=== PATIENT | male | born 1970 | race Caucasian/White ===

== ENCOUNTER 2022-02-11 14:04 | Inpatient (IN) ==
[~2022-02-11 14:04] MED LIST: HEPARIN SOD (PORCINE) 1000 UNIT/ML IV ONE; SODIUM CHLORIDE 0.9% 500 ML IV ONE; TICAGRELOR 90 MG TAB PO ONE; fentaNYL citrate 100 MCG/2 ML VIAL IV PRN
[2022-02-11] MEDS ORDERED: MIDAZOLAM HCL 1 MG/ML 2ML VIAL ONE ×2 (14:08→14:41)
[2022-02-11] MEDS ORDERED: HEPARIN (PORCINE) 1000 UNIT/ML 10 ML (CATH LAB USE ONLY) ONE (14:08)
[2022-02-11] MEDS ORDERED: niCARdipine HCL INJ 2.5 MG/ML 10 ML AMP ONE (14:09)
[2022-02-11] MEDS ORDERED: fentaNYL citrate 100 MCG/2 ML VIAL ONE (14:09)
[2022-02-11] MEDS ORDERED: NITROGLYCERIN/D5W 100MCG/ML 20ML SYR ONE (14:09)
[2022-02-11] MEDS ORDERED: BIVALIRUDIN 250 MG VIAL (CATH LAB ONLY) ONE (14:09)
--- NOTE | 2022-02-11 14:20 | Emergency Department Note ---
Impression & Plan STEMI (ST elevation myocardial infarction), Hyperlipidemia, Current smoker, Elevated troponin ED Provider Note NAME: FELICIA HART AGE: 51 SEX: M ARRIVES VIA: Ambulance INFORMANT: Patient ED PROVIDER(S): Joseph Pino MD CHIEF COMPLAINT: Chest pain, STEMI PLAN: Disposition: Admit MEDICAL DECISION MAKING: The patient is a pleasant 60-year-old gentleman with a past medical history of hyperlipidemia who admits to not following with his primary care and close to 10 years or more not currently on medications who presents to the emergency depart ment via EMS as a heart alert. This provider, discussed the case with EMS via medical command and reviewed EKG which demonstrated inferior ST elevation [place] with elevations in 2, 3 aVF with reciprocal depression in aVL. Full dose ASA given in the field. Case was discussed with Dr. Ruelas, interventional cardiology, on-call. Agrees we will proceed with heparin and ticagrelor. The patient contacted 911 for acute onset substernal chest pain that began approximately an hour prior to arrival after he was outside in the yard doing some work and went into the garage and began to feel the pressure and nausea with associated lightheadedness and diaphoresis. Patient ports he had a similar episode last ni ght that was not as severe and quickly resolved. 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 He denies any known family history of heart disease. He denies any recent fevers, chills, cough, congestion, GI or symptoms. He reports his pain is a 5/10 at this time but declines any pain medication or nitroglycerin. On arrival the patient is no acute distress, afebrile stable vital signs. Exam is otherwise unremarkable. EKG continues to demonstrate ST elevations in leads II, 3, aVF with reciprocal depression in aVL. WBC, H/H, platelets wnl. Chemistry without acidosis. Electrolytes unremarkable. LFTs without significant abnormality. Initial high-sensitivity troponin 72. Heparin and Ticagrelor administered. Findings and plan for cardiac intervention reviwed with patient and his at the bedside who agreed. Patient was taken emergently to the Cath-lab for intervention. Case was discussed with Dr. Mina, [facility] hospitalist, who will evaluate the patient for admission following cath-lab intervention. Triage Nursing notes reviewed and agree them. Prior medical records reviewed Vital Signs: reviewed and remarkable for no significant abnormalities Differential diagnosis: Cardiac ischemia, aortic dissection, pulmonary embolism, pneumothorax, pneumonia, pericarditis, myocarditis, esophageal rupture, GERD, cholecystitis, pancreatitis, musculoskeletal, as well as other pathologies. ER treatment provided: See below. Diagnostics interpreted by me: ECG: Sinus rhythm, 68 bpm, no ectopy, ST elevations in leads II, 3, aVF with reciprocal depression in aVL. Cardiac Monitoring: An order for continuous cardiac monitoring was placed and demonstrated sinus rhythm, 68 bpm, no ectopy. Laboratory studies: See below Imaging studies: See below Consultation(s): Dr. Ruelas, interventional cardiology. Dr. Mina, [facility] hospitalist. HPI: The patient is a pleasant 60-year-old gentleman with a past medical history of hyperlipidemia who admits to not following with his primary care and close to 10 years or more not currently on medications who presents to the emergency department via EMS as a heart alert. This provider, discussed the case with EMS via medical command and reviewed EKG which demonstrated inferior ST elevation AZ with elevations in 2, 3 aVF with reciprocal depression in aVL. Full dose ASA given in the field. Case was discussed with Dr. Ruelas, interventional cardiology, on-call. Agrees we will proceed with heparin and ticagrelor. The patient contacted 911 for acute onset substernal chest pain that began approximately an hour prior to arrival after he was outside in the yard doing some work and went into the garage and began to feel the pressure and nausea with associated lightheadedness and diaphoresis. Patient ports he had a similar episode last night that was not as severe and quickly resolved. 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 He denies any known family history of heart disease. He denies any recent fevers, chills, cough, congestion, GI or symptoms. He reports his pain is a 5/10 at this time but declines any pain medication or nitroglycerin. ROS: See above HPI for pertinent positives & negatives. A total of 10 systems reviewed and were otherwise negative. VITALS:See Below PHYSICAL EXAMINATION: GENERAL: Awake, alert, uncomfortable-appearing, in no distress HENT: Normocephalic, atraumatic. Oropharynx unremarkable. EYES: Normal conjunctiva. Sclera non-icteric. NECK: Supple. No nuchal rigidity. FROM. No JVD. RESPIRATORY: Clear to auscultation. CARDIAC: Regular rate, normal rhythm. Extremities warm and well perfused. Pulses equal. ABDOMEN: Soft, non-distended. No tenderness to palpation. No rebound or guarding. No masses. RECTAL: Deferred. MUSCULOSKELETAL: Chest examination reveals no tenderness. The back is symmetrical on inspection without obvious abnormality. There is no CVA tenderness to palpation. No joint edema. LOWER EXTREMITIES: Calves are equal size bilaterally and non-tender. No edema. No discoloration. NEURO: Normal sensorium. No sensory or motor deficits noted. SKIN: No rash or jaundice noted. ED COURSE: Critical Care: I have personally spent greater than 35 minutes of critical care time in the direct management of this patient. This includes bedside care, interpretation of diagnostic studies, and testing, discussion with consultants, patient, and family members, and other required patient management activities. This 35 minutes is in excess of all separately billable procedures Joseph Pino MD Past Med/Surg History Medical History CAD (coronary artery disease), [place] coronary artery Current smoker Hyperlipidemia Surgical History No pertinent past surgical history Family History Other Family history non-contributory Denies family history of Heart disease Social History (Updated 02/11/22 @ 16:49 by Ginette Mina MD) Smoking Status: Current every day smoker Tobacco Type: Cigarettes Second Hand Exposure: Yes; Hx Alcohol Use: Yes Alcohol type: beer Alcohol Intake Frequency: 4 or More x per/Week Alcohol Intake Frequency Comment: 2-6 beers Hx Substance Use: No Preferred Language: Bolivian Communication Ability: Effective Packaging Mechanic Required: No Beliefs That Will Affect Care: None Current Living Situation: Spouse and Family current occupational status: employed current occupation: Works in the [employer] Feels Safe at Home: Yes Assistive Devices: None Allergies Allergies Allergy/AdvReac Type Severity Reaction Status Date / Time No Known Allergies Allergy Unverified 02/11/22 14:28 Home Meds Home Medications Medication Instructions Recorded Confirmed No Known Home Medications 02/11/22 02/11/22 Results & Data (ED) Vital Signs Vital Signs - 24 hr 02/11/22 13:56 02/11/22 14:03 02/11/22 14:27 Temperature 36.7 C Temperature Source Oral Pulse Rate 66 66 66 Pulse Rhythm Regular Respiratory Rate 18 18 18 Respiratory Effort / Characteristics Non-Labored Respiratory Depth Normal Respiratory Pattern Regular Blood Pressure 136/84 136/84 Blood Pressure Mean 101 Pulse Oximetry 99 99 99 Oxygen Delivery Method Room Air Room Air Room Air Sepsis Recent Fever Within 48 Hours No Sepsis New/Unexplained Change in Mental Status No Sepsis Action Taken by Nursing No Action Required Laboratory Data Attestation: I reviewed the patient's lab results. Result diagrams: 02/11/22 14:15 02/11/22 14:15 Lab Results 02/11/22 02/11/22 02/11/22 Range/Units 14:08 14:15 14:15 WBC 9.24 (4.8-10.8) K/uL RBC 5.14 (4.7-6.1) M/uL Hgb 16.5 (14.0-18.0) g/dL Hct 48.2 (42-52) % MCV 93.8 (80-100) fL MCH 32.1 (25-34) pg MCHC 34.2 (32-36) g/dL RDW Std Deviation 44.8 (36.4-46.3) fL RDW Coeff of Adina 13.0 (11.5-14.5) % Plt Count 228 (130-400) K/uL MPV 11.1 H (7.4-10.4) fL Immature Gran % (Auto) 0.1 % Neut % (Auto) 50.8 % Lymph % (Auto) 40.5 % [place] % (Auto) 6.3 % Eos % (Auto) 1.9 % Baso % (Auto) 0.4 % Neut # (Auto) 4.69 (1.4-6.5) K/uL Lymph # (Auto) 3.74 H (1.2-3.4) K/uL [place] # (Auto) 0.58 (0.11-0.59) K/uL Eos # (Auto) 0.18 (0-0.5) K/uL Baso # (Auto) 0.04 (0-0.2) K/uL Immature Gran # (Auto) 0.01 (0.00-0.02) K/uL PT 10.2 (9.0-12.0) Seconds INR 1.0 (0.9-1.1) APTT 23.1 (21.0-31.0) Seconds PTT Ratio 0.8 Sodium (136-145) mmol/L Potassium (3.5-5.1) mmol/L Chloride (98-107) mmol/L Carbon Dioxide (21-32) mmol/L Anion Gap (3-11) BUN (6-23) mg/dl Creatinine (0.6-1.4) mg/dl Est Cr Clr Drug Dosing ml/min Est GFR ( Amer) ml/min Est GFR (Non-Af Amer) ml/min BUN/Creatinine Ratio (10-20) Glucose (70-99(Fasting)) mg/dl Calcium (8.5-10.1) mg/dl Magnesium (1.7-2.4) mg/dl Total Bilirubin (0.2-1.0) mg/dl AST (13-39) U/L ALT (7-52) U/L Alkaline Phosphatase (34-104) U/L Total Creatine Kinase (30-223) U/L Troponin I High Sens (0-20) pg/ml B-Natriuretic Peptide (0-100) pg/ml Total Protein (6.0-8.3) gm/dl Albumin (3.4-5.0) gm/dl Globulin (2.5-4.0) gm/dl Albumin/Globulin Ratio (0.9-2) Lipase (11-82) U/L TSH (0.300-4.500) uIu/ml SARS-CoV-2, RNA, NAAT NEGATIVE (NEGATIVE) 02/11/22 02/11/22 02/11/22 Range/Units 14:15 14:15 14:15 WBC (4.8-10.8) K/uL RBC (4.7-6.1) M/uL Hgb (14.0-18.0) g/dL Hct (42-52) % MCV (80-100) fL MCH (25-34) pg MCHC (32-36) g/dL RDW Std Deviation (36.4-46.3) fL RDW Coeff of Adina (11.5-14.5) % Plt Count (130-400) K/uL MPV (7.4-10.4) fL Immature Gran % (Auto) % Neut % (Auto) % Lymph % (Auto) % [place] % (Auto) % Eos % (Auto) % Baso % (Auto) % Neut # (Auto) (1.4-6.5) K/uL Lymph # (Auto) (1.2-3.4) K/uL [place] # (Auto) (0.11-0.59) K/uL Eos # (Auto) (0-0.5) K/uL Baso # (Auto) (0-0.2) K/uL Immature Gran # (Auto) (0.00-0.02) K/uL PT (9.0-12.0) Seconds INR (0.9-1.1) APTT (21.0-31.0) Seconds PTT Ratio Sodium 139 (136-145) mmol/L Potassium 3.8 (3.5-5.1) mmol/L Chloride 104 (98-107) mmol/L Carbon Dioxide 26 (21-32) mmol/L Anion Gap 9 (3-11) BUN 12 (6-23) mg/dl Creatinine 0.90 (0.6-1.4) mg/dl Est Cr Clr Drug Dosing 107.6 ml/min Est GFR ( Amer) 115.0 ml/min Est GFR (Non-Af Amer) 99.2 ml/min BUN/Creatinine Ratio 13.3 (10-20) Glucose 103 H (70-99(Fasting)) mg/dl Calcium 9.5 (8.5-10.1) mg/dl Magnesium 2.1 (1.7-2.4) mg/dl Total Bilirubin 0.8 (0.2-1.0) mg/dl AST 23 (13-39) U/L ALT 34 (7-52) U/L Alkaline Phosphatase 78 (34-104) U/L Total Creatine Kinase 119 (30-223) U/L Troponin I High Sens 72.0 H* (0-20) pg/ml B-Natriuretic Peptide 18 (0-100) pg/ml Total Protein 7.7 (6.0-8.3) gm/dl Albumin 4.7 (3.4-5.0) gm/dl Globulin 3.0 (2.5-4.0) gm/dl Albumin/Globulin Ratio 1.6 (0.9-2) Lipase 25 (11-82) U/L TSH 1.522 (0.300-4.500) uIu/ml SARS-CoV-2, RNA, NAAT (NEGATIVE) Administered Medications Atorvastatin Calcium (Atorvastatin 40 Mg Tab) 40 mg PO QAM MARGIE Stop: 03/13/22 15:29 Last Admin: 02/11/22 17:15 Dose: 40 mg Documented by: [id number] Metoprolol Tartrate (Metoprolol Tartrate 25 Mg Tab) 25 mg PO BID MARGIE Stop: 03/13/22 20:59 Last Admin: 02/11/22 20:10 Dose: 25 mg Documented by: [id number] Discontinued Medications Aspirin (Aspirin 81 Mg Ectab) 81 mg PO ONE ONE Stop: 02/11/22 16:46 Last Admin: 02/11/22 17:15 Dose: 81 mg Documented by: [id number] Atropine Sulfate (Atropine Sulfate 0.1 Mg/Ml 10ml Syr) Confirm Administered Dose 1 mg IV .STK-MED ONE Stop: 02/11/22 14:40 Last Admin: 02/11/22 15:44 Dose: 1 mg Documented by: [id number] Bivalirudin (Bivalirudin 250 Mg Vial (Laundry Attendant Only)) Confirm Administered Dose 250 mg .ROUTE .STK-MED ONE Stop: 02/11/22 14:10 Last Admin: 02/11/22 15:43 Dose: 250 mg Documented by: [id number] Dopamine HCl/Dextrose (Dopamine 400mg / 250ml D5w (Laundry Attendant Use Only)) Confirm Administered Dose 400 mg .ROUTE .STK-MED ONE Stop: 02/11/22 14:55 Last Admin: 02/11/22 15:45 Dose: Not Given Documented by: [id number] Fentanyl Citrate (Fentanyl Citrate 100 Mcg/2 Ml Vial) Confirm Administered Dose 100 mcg .ROUTE .STK-MED ONE Stop: 02/11/22 14:10 Last Admin: 02/11/22 15:43 Dose: 50 mcg Documented by: [id number] Heparin Sodium (Porcine) (Heparin Sod (Porcine) 1000 Unit/Ml) 5,000 units IV NOW ONE Stop: 02/11/22 13:58 Last Admin: 02/11/22 14:15 Dose: 5,000 units Documented by: [id number] Cosigned by: [id number] Heparin Sodium (Porcine) (Heparin (Porcine) 1000 Unit/Ml 10 Ml (Laundry Attendant Use Only)) Confirm Administered Dose 10,000 units .ROUTE .STK-MED ONE Stop: 02/11/22 14:09 Last Admin: 02/11/22 15:43 Dose: Not Given Documented by: [id number] Heparin Sodium/Sodium Chloride (Heparin In Nss Infusion 1000 Unit/500 Ml (2 U/Ml) Bag) Confirm Administered Dose 3,000 units IV .STK-MED ONE Stop: 02/11/22 14:10 Last Admin: 02/11/22 15:44 Dose: 3,000 units Documented by: [id number] Sodium Chloride (Nss) 500 mls @ 999 mls/hr IV .Q31M ONE Stop: 02/11/22 14:29 Last Infusion: 02/11/22 17:37 Dose: 0 mls/hr Documented by: [id number] Admin: 02/11/22 14:16 Dose: 999 mls/hr Documented by: [id number] Midazolam HCl (Midazolam Hcl 1 Mg/Ml 2ml Vial) Confirm Administered Dose 2 mg .ROUTE .STK-MED ONE Stop: 02/11/22 14:09 Last Increment: 02/11/22 15:43 Dose: 2 mg Documented by: [id number] Midazolam HCl (Midazolam Hcl 1 Mg/Ml 2ml Vial) Confirm Administered Dose 2 mg .ROUTE .STK-MED ONE Stop: 02/11/22 14:42 Last Admin: 02/11/22 15:44 Dose: Not Given Documented by: [id number] Nicardipine HCl (Nicardipine Hcl Inj 2.5 Mg/Ml 10 Ml Amp) Confirm Administered D ose 25 mg .ROUTE .STK-MED ONE Stop: 02/11/22 14:10 Last Admin: 02/11/22 15:44 Dose: 25 mg Documented by: [id number] Nitroglycerin/Dextrose (Nitroglycerin/D5w 100mcg/Ml 20ml Syr) Confirm Adm inistered Dose 2,000 mcg .ROUTE .STK-MED ONE Stop: 02/11/22 14:10 Last Admin: 02/11/22 15:44 Dose: 2,000 mcg Documented by: [id number] Ticagrelor (Ticagrelor 90 Mg Tab) 180 mg PO ONE ONE Stop: 02/11/22 13:58 Last Admin: 02/11/22 14:16 Dose: 180 mg Documented by: [id number] Imaging Data Radiologist's Impression: Chest X-Ray 02/11/22 13:56 XR chest 1V portable HISTORY: 51 years-old Male Chest pain acute atypical chest pain COMPARISON: None TECHNIQUE: AP view of the chest FINDINGS: Cardiac silhouette is enlarged. Mild nonspecific interstitial coarsening. No pneumothorax, pleural effusion, airspace consolidation or overt pulmonary edema. The bones of the chest appear grossly intact. IMPRESSION: Cardiomegaly without acute process. ACT 112: Negative or not required by law. The above report was generated using voice recognition software. It may contain grammatical, syntax or spelling errors. Electronically signed by: Xavier Cespedes M.D. 02/11/2022 2:22 PM Discharge Plan Visit Data Chief Complaint: Heart Alert ED Provider: Joseph Pino Discharge Problem: STEMI (ST elevation myocardial infarction), Hyperlipidemia, Current smoker, Elevated troponin Patient Disposition: Admitted As Inpatient Discharge Instructions Interventions: ED Discharge Assessment Last Done: 02/11/22 14:27 Discharge Problem: STEMI (ST elevation myocardial infarction) Qualifiers: Involved coronary artery: unspecified coronary artery Qualified Code(s): I21.3 - ST elevation (STEMI) myocardial infarction of unspecified site Hyperlipidemia Qualifiers: Hyperlipidemia type: unspecified Qualified Code(s): E78.5 - Hyperlipidemia, unspecified
--- NOTE | 2022-02-11 14:25 | XRay Report ---
XR chest 1V portable HISTORY: 51 years-old Male Chest pain acute atypical chest pain COMPARISON: None TECHNIQUE: AP view of the chest FINDINGS: Cardiac silhouette is enlarged. Mild nonspecific interstitial coarsening. No pneumothorax, pleural ef fusion, airspace consolidation or overt pulmonary edema. The bones of the chest appear grossly intact . IMPRESSION: Cardiomegaly without acute process. ACT 112: Negative or not required by law. The above report was generated using voice recognition software. It may contain grammatical, syntax o r spelling errors. Electronically signed by: Xavier Cespedes M.D. 02/11/2022 2:22 PM
[2022-02-11 14:36] LABS: Basophils # (auto) 0.04 K/uL (0-0.2); Basophils % (auto) 0.4 %; Eosinophils # (auto) 0.18 K/uL (0-0.5); Eosinophils % (auto) 1.9 %; Hematocrit (blood only) 48.2 % (42-52); Hemoglobin 16.5 g/dL (14.0-18.0); Immature Granulocytes # (auto) 0.01 K/uL (0.00-0.02); Immature Granulocytes % (auto) 0.1 %; Lymphocytes # (auto) 3.74 K/uL (1.2-3.4); Lymphocytes % (auto) 40.5 %; Mean Corpuscular Hemoglobin 32.1 pg (25-34); Mean Corpuscular Hgb Conc 34.2 g/dL (32-36); Mean Corpuscular Volume 93.8 fL (80-100); Mean Platelet Volume 11.1 fL (7.4-10.4); Monocytes # (auto) 0.58 K/uL (0.11-0.59); Monocytes % (auto) 6.3 %; Neutrophils # (auto) 4.69 K/uL (1.4-6.5); Neutrophils % (auto) 50.8 %; Platelet Count 228 K/uL (130-400); RDW Standard Deviation 44.8 fL (36.4-46.3); Red Blood Count 5.14 M/uL (4.7-6.1); White Blood Count 9.24 K/uL (4.8-10.8)
[2022-02-11] MEDS ORDERED: ATROPINE SULFATE 0.1 MG/ML 10ML SYR IV ONE (14:39)
[2022-02-11 14:43] LABS: Partial Thromboplastin Ratio 0.8; Partial Thromboplastin Time 23.1 Seconds (21.0-31.0); Prothrombin Time 10.2 Seconds (9.0-12.0)
[2022-02-11] MEDS ORDERED: DOPamine 400MG / 250ML D5W (Cath Lab Use ONLY) ONE (14:54)
[2022-02-11 14:59] LABS: Albumin Globulin Ratio 1.6 (0.9-2); Albumin Level 4.7 gm/dl (3.4-5.0); BUN Creatinine Ratio 13.3 (10-20); Bilirubin,Total 0.8 mg/dl (0.2-1.0); Calcium 9.5 mg/dl (8.5-10.1); Creatinine Clr Calc Pharmacy 107.6 ml/min; Est GFR (Non-African American) 99.2 ml/min; Magnesium 2.1 mg/dl (1.7-2.4); Potassium 3.8 mmol/L (3.5-5.1); Total Protein 7.7 gm/dl (6.0-8.3)
--- NOTE | 2022-02-11 14:59 | History & Physical Report ---
Date of Service February 11, 2022 Assessment & Plan (1) STEMI (ST elevation myocardial infarction): Plan: Presented with inferior STEMI. Risk factors include age, gender, smoking, untreated hyperlipidemia. 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 Taken urgently for cardiac cath and found to have severe 99% mid RCA lesion with MICHEAL II flow. He had successful intervention performed with placement of 2 overlapping drug- eluting stents in mid right coronary artery, 3 mm x 23 mm Xience drug-eluting stents. His left coronary system appears to have mild to moderate mid LAD disease of 40 to 50% severity, left circumflex system otherwise appears normal. Is now chest pain free and feels great post-cath. Right femoral cath site -admit to ICU -consult Rehab Technician appreciated -consult Cardiology -tele monitoring for arrhythmia -start DAPT with ASA-first dose now, and Brilinta -start atorvastatin high intensity and check lipid panel in AM--> he reports a h/o severe myalgias in the past with a statin drug but cannot recall which one -start metoprolol 25mg po bid -will also need ACEi when BP can tolerate -follow CBC, BMP, Mag, Phos in AM -check HgbA1C in AM -trend serial troponin till peaks -check ECHO -femoral cath site precautions -counseled extensively on importance of smoking cessation -will need cardiac rehab (2) CAD (coronary artery disease), [place] coronary artery: Plan: as above (3) Hyperlipidemia: Plan: start statin, checking lipids (4) Current smoker: Plan: counseled on cessation Plan: DVT proph-SCDs Dispo-admit to ICU. WIll need to get re-established with PCP after discharge as has not had one in over 10 years FULL CODE History of Present Illness Chief Complaint: Chest pain Primary Care Provider: Marley Sánchez PA-C This pt is a 51 yo male with a h/o smoking and hyperlipidemia who has not seen a PCP in over 10 years and takes no medications who presents to the ER after having chest pain that came on while doing some yard work today about an hour b efore his arrival to the hospital. He had some chest pain last evening that was similar but did not last as long and then went away. Today after the chest pain started, he went into his garage and then had some associated N/V and diaphoresis. He tried taking ibuprofen and some milk with no relief. Pain radiated to his left shoulder and he had a sensation that something wasn't quite right. He then called 911 and arrived in ER via EMS. He was found to have ST elevations in inferior leads with reciprocal ST depressions in lateral leads c/w inferior STEMI. He was hemodynamically stable in the ER. A heart alert was called and he was given Brilinta and heparin gtt, but no aspirin. 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 His left coronary system appears to have mild to moderate mid LAD disease of 40 to 50% severity, left circumflex system otherwise appears normal. He will be admitted to the ICU for post-interventional care and tele monitoring for arrhythmia. Allergies Allergy/AdvReac Type Severity Reaction Status Date / Time No Known Allergies Allergy Unverified 02/11/22 14:28 Home Medications Medication Instructions Recorded Confirmed Type No Known Home Medications 02/11/22 02/11/22 History Past Med/Surg History Medical History CAD (coronary artery disease), [place] coronary artery Current smoker Hyperlipidemia Surgical History No pertinent past surgical history Family History Other Family history non-contributory Denies family history of Heart disease Social History (Updated 02/11/22 @ 16:49 by Ginette Mina MD) Smoking Status: Current every day smoker Tobacco Type: Cigarettes Second Hand Exposure: Yes; Do You Dip or Chew Tobacco: Yes; Tobacco Cessation Education Requested by Patient: Yes Hx Alcohol Use: Yes Alcohol type: beer Alcohol Intake Frequency: 4 or More x per/Week Alcohol Intake Frequency Comment: 2-6 beers Hx Substance Use: No Preferred Language: Angolan Communication Ability: Effective 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 Beliefs That Will Affect Care: None Current Living Situation: Spouse and Family current occupational status: employed current occupation: Works in the [employer] Other Information That Helps Us Care for You: No Feels Safe at Home: Yes Safety Concerns: Feels Safe At This Time Assistive Devices: None Review of Systems Review of Systems: All systems reviewed & are unremarkable except as noted in HPI & below Physical Exam Constitutional: WD/WN, vitals as above Eyes: PERRL, conjunctivae normal, anicteric sclerae ENMT: external ear and nose normal, oropharynx normal Neck: trachea midline, no thyromegaly Respiratory: normal respiratory effort, lungs clear to auscultation Cardiovascular: RRR, no murmur, no edema Chest (Breasts): Chest: normal inspection of chest Gastrointestinal (Abdomen): normal bowel sounds, soft, nontender, no hepatosplenomegaly Musculoskeletal: Extremities: extremities normal to inspection; no cyanosis and no clubbing Skin: no rashes, warm and dry Neurologic: moves all extremities and awake; no focal motor deficits Psychiatric: A+Ox3, euthymic affect Lymphatic: no lymphedema Results & Data Results & Data ([facility]) Vital Signs (Past 12 Hours) Vital Signs Temp Pulse Resp BP Pulse Ox 02/11/22 14:27 66 18 136/84 99 02/11/22 14:03 36.7 C 66 18 136/84 99 02/11/22 13:56 66 18 99 Laboratory Results 02/11/22 02/11/22 02/11/22 Range/Units 14:15 14:15 14:15 WBC (4.8-10.8) K/uL RBC (4.7-6.1) M/uL Hgb (14.0-18.0) g/dL Hct (42-52) % MCV (80-100) fL MCH (25-34) pg MCHC (32-36) g/dL RDW Std Deviation (36.4-46.3) fL RDW Coeff of Adina (11.5-14.5) % Plt Count (130-400) K/uL MPV (7.4-10.4) fL Immature Gran % (Auto) % Neut % (Auto) % Lymph % (Auto) % [place] % (Auto) % Eos % (Auto) % Baso % (Auto) % Neut # (Auto) (1.4-6.5) K/uL Lymph # (Auto) (1.2-3.4) K/uL [place] # (Auto) (0.11-0.59) K/uL Eos # (Auto) (0-0.5) K/uL Baso # (Auto) (0-0.2) K/uL Immature Gran # (Auto) (0.00-0.02) K/uL PT (9.0-12.0) Seconds INR (0.9-1.1) APTT (21.0-31.0) Seconds PTT Ratio Sodium 139 (136-145) mmol/L Potassium 3.8 (3.5-5.1) mmol/L Chloride 104 (98-107) mmol/L Carbon Dioxide 26 (21-32) mmol/L Anion Gap 9 (3-11) BUN 12 (6-23) mg/dl Creatinine 0.90 (0.6-1.4) mg/dl Est Cr Clr Drug Dosing 107.6 ml/min Est GFR ( Amer) 115.0 ml/min Est GFR (Non-Af Amer) 99.2 ml/min BUN/Creatinine Ratio 13.3 (10-20) Glucose 103 H (70-99(Fasting)) mg/dl Calcium 9.5 (8.5-10.1) mg/dl Magnesium 2.1 (1.7-2.4) mg/dl Total Bilirubin 0.8 (0.2-1.0) mg/dl AST 23 (13-39) U/L ALT 34 (7-52) U/L Alkaline Phosphatase 78 (34-104) U/L Total Creatine Kinase 119 (30-223) U/L Troponin I High Sens Pending B-Natriuretic Peptide 18 (0-100) pg/ml Total Protein 7.7 (6.0-8.3) gm/dl Albumin 4.7 (3.4-5.0) gm/dl Globulin 3.0 (2.5-4.0) gm/dl Albumin/Globulin Ratio 1.6 (0.9-2) Lipase 25 (11-82) U/L TSH 1.522 (0.300-4.500) uIu/ml SARS-CoV-2, RNA, NAAT (NEGATIVE) 02/11/22 02/11/22 02/11/22 Range/Units 14:15 14:15 14:08 WBC 9.24 (4.8-10.8) K/uL RBC 5.14 (4.7-6.1) M/uL Hgb 16.5 (14.0-18.0) g/dL Hct 48.2 (42-52) % MCV 93.8 (80-100) fL MCH 32.1 (25-34) pg MCHC 34.2 (32-36) g/dL RDW Std Deviation 44.8 (36.4-46.3) fL RDW Coeff of Adina 13.0 (11.5-14.5) % Plt Count 228 (130-400) K/uL MPV 11.1 H (7.4-10.4) fL Immature Gran % (Auto) 0.1 % Neut % (Auto) 50.8 % Lymph % (Auto) 40.5 % [place] % (Auto) 6.3 % Eos % (Auto) 1.9 % Baso % (Auto) 0.4 % Neut # (Auto) 4.69 (1.4-6.5) K/uL Lymph # (Auto) 3.74 H (1.2-3.4) K/uL [place] # (Auto) 0.58 (0.11-0.59) K/uL Eos # (Auto) 0.18 (0-0.5) K/uL Baso # (Auto) 0.04 (0-0.2) K/uL Immature Gran # (Auto) 0.01 (0.00-0.02) K/uL PT 10.2 (9.0-12.0) Seconds INR 1.0 (0.9-1.1) APTT 23.1 (21.0-31.0) Seconds PTT Ratio 0.8 Sodium (136-145) mmol/L Potassium (3.5-5.1) mmol/L Chloride (98-107) mmol/L Carbon Dioxide (21-32) mmol/L Anion Gap (3-11) BUN (6-23) mg/dl Creatinine (0.6-1.4) mg/dl Est Cr Clr Drug Dosing ml/min Est GFR ( Amer) ml/min Est GFR (Non-Af Amer) ml/min BUN/Creatinine Ratio (10-20) Glucose (70-99(Fasting)) mg/dl Calcium (8.5-10.1) mg/dl Magnesium (1.7-2.4) mg/dl Total Bilirubin (0.2-1.0) mg/dl AST (13-39) U/L ALT (7-52) U/L Alkaline Phosphatase (34-104) U/L Total Creatine Kinase (30-223) U/L Troponin I High Sens B-Natriuretic Peptide (0-100) pg/ml Total Protein (6.0-8.3) gm/dl Albumin (3.4-5.0) gm/dl Globulin (2.5-4.0) gm/dl Albumin/Globulin Ratio (0.9-2) Lipase (11-82) U/L TSH (0.300-4.500) uIu/ml SARS-CoV-2, RNA, NAAT NEGATIVE (NEGATIVE) Diagnostic Findings Chest X-Ray 02/11/22 13:56 XR chest 1V portable HISTORY: 51 years-old Male Chest pain acute atypical chest pain COMPARISON: None TECHNIQUE: AP view of the chest FINDINGS: Cardiac silhouette is enlarged. Mild nonspecific interstitial coarsening. No pneumothorax, pleural effusion, airspace consolidation or overt pulmonary edema. The bones of the chest appear grossly intact. IMPRESSION: Cardiomegaly without acute process. ACT 112: Negative or not required by law. The above report was generated using voice recognition software. It may contain grammatical, syntax or spelling errors. Electronically signed by: Xavier Cespedes M.D. 02/11/2022 2:22 PM ECG Additional Comments: as per HPI Code Status & VTE Plan Code Status FULL CODE VTE Prophylaxis Plan VTE Prophylaxis will be ordered: Yes PG Care Time/CCT Total # of Minutes Spent Total Time Spent with Patient: Total time spent is greater than 50% in coordination of care (as documented) at patient's floor/unit and/or counseling patient: Coding Level of Care Code 12076 Initial Inpt Care Lvl 3 Diagnoses Hyperlipidemia E78.5 Current smoker F17.200 STEMI (ST elevation myocardial infarction) I21.3 CAD (coronary artery disease), [place] coronary artery I25.10
--- NOTE | 2022-02-11 15:12 | Pre Anesthesia Assessment ---
Date of Service February 11, 2022 Pre Sedation Assessment Vital Signs Temp Pulse Resp BP Pulse Ox 02/11/22 14:27 66 18 136/84 99 02/11/22 14:03 36.7 C 66 18 136/84 99 02/11/22 13:56 66 18 99 Cardiovascular RRR, no murmur, no edema Pre-Sedation Airway Assessment Smoking Status: Current every day smoker II III Notes The planned sedation has been discussed with the patient. Informed Consent was obtained. I have identified the patient, determined the appropriateness of sed ation and have assessed the patient immediately prior to the procedure. All medicine(s) and interventions are by my order.
--- NOTE | 2022-02-11 15:12 | Post Anesthesia Assessment ---
Date of Service February 11, 2022 Post Sedation Assessment Vital Signs Temp Pulse Resp BP Pulse Ox 02/11/22 14:27 66 18 136/84 99 02/11/22 14:03 36.7 C 66 18 136/84 99 02/11/22 13:56 66 18 99 Recovery Score Activity: Moves 4 extremities Respiration: Deep Breath/Cough Circulation: +/-20% PreAnes Value Consciousness: Fully Awake Oxygen Saturation: > 92% On Room Air Discharge Sedation Level of Care: Higher Level of Care Post Sedation Plan On clinical assessment, the patient appears to have tolerated the sedation without complications. Patient is recovering as anticipated. Patient will continue to be monitored by nursing and may be discharged when sedation discharge criteria are met per below protocol. Upon Completions of procedure up to 15 minutes continue every 5 minute vital signs and the P.A.R. score; then discharge to a Phase I or Fast Track to Phase II per the following guidelines: * Discharge Patient to appropriate Phase II area if PAR is 8 or greater or return to pre- procedure baseline. The post - procedure orders will be as directed. * If PAR score is less than 8 or not return to pre-procedure baseline then patient will follow Phase I monitoring till PAR is reached for Phase II. The Phase I may be done in procedure room or may call to secure a Phase I area. * If naloxone or flumazenil are used for reversal, hold in Phase I for continued monitoring from when last reversal dose was given for a minimum of 60 minutes or longer pending the nurse and/or physician discretion of patient condition before discharge to Phase II. Please call the Sedation Physician to re-evaluate and complete post-note for discharge to Phase II area. Do NOT discharge from procedure sedation or Phase 1 until post- sedation evaluation note is complete by procedure /sedation MD Sedation Discharge Instructions to be given to the patient at discharge to home.
--- NOTE | 2022-02-11 15:15 | Cardiac Catheterization ---
ACC Data: [employer] Cardiac Status Clinical evaluation leading to the procedure CAD Presenation: STEMI Diagnostic Physicians Name: Agus Ruelas MD Closure Device Recommendations: Medical Therapy and/or Counseling and PCI without planned CABG Cardiac Cath Procedure Full Procedure Date February 11, 2022 Pre-Procedure Diagnosis Pre-Procedure Diagnosis: STEMI AUC Score AUC Score: 9 Post-Procedure Diagnosis Post-Procedure Diagnosis: Successful PCI Procedure(s) Performed Procedure(s) Performed: Coronary Angiography and Drug Eluting Stent Apiculture Teacher Agus Ruelas MD Estimated Blood Loss Estimated Blood Loss: 10 Summary of Findings 51-year-old gentleman presented to the hospital with acute inferior ST elevation myocardial infarction. Cardiac catheterization revealed severe 99% mid RCA lesion with MICHEAL II flow. He had successful intervention performed with placement of 2 overlapping drug- eluting stents in mid right coronary artery, 3 mm x 23 mm Xience drug-eluting stents. Successful jainism of MICHEAL-3 flow in the distal part of the vasculature. His left coronary system appears to have mild to moderate mid LAD disease of 40 to 50% severity, left circumflex system otherwise appears normal. Hemodynamics Rest Ao:: 129/71 Final Ao: 84/60 LV: not done Recommendations Recommendations: Medical Therapy and/or Counseling and PCI without planned CABG Radiation Exposure (mGy) 1323 Contrast (mls) 110 I attest to the content of the Intraoperative Record and any orders documented therein. Any exceptions are noted below. PG Care Time/CCT Total # of Minutes Spent Total Time Spent with Patient: Total time spent is greater than 50% in coordination of care (as documented) at patient's floor/unit and/or counseling patient:
[2022-02-11] MEDS ORDERED: ICU PROTOCOL FOR HYPERGLYCEMIA PRN (16:07)
--- NOTE | 2022-02-11 16:24 | Critical Care Consultation ---
Date of Consultation February 11, 2022 Assessment & Plan (1) CAD (coronary artery disease), [place] coronary artery: (2) STEMI (ST elevation myocardial infarction): (3) Current smoker: (4) Hyperlipidemia: Supervising Physician Co-Signing Physician Notes Chest x-ray 02/11/2022 personally reviewed: Portable film, good inspiratory effort, bilateral costophrenic and cardiophrenic angles are clean, mildly increased cardiac silhouette. No clear lung. Appreciated -- Acute STEMI S/p PCI: ROBERT x2 in the RCA Follow-up 2D echo Continue with aspirin, Brilinta, beta-robin, statin patient will need JORGE added as well -- Current smoker Importance of quitting explained to the patient in depth PFT as an outpatient --Prophylaxis VTE: Start Lovenox tomorrow GI: None Lines: Peripheral Diet: Cardiac Plan: Monitor hemodynamics. Start beta-robin if the patient is able to sustain good good blood pressure HbA1c and lipid profile tomorrow Trend EKG and troponin Please note the above document was generated using voice recognition software. It may contain grammatical, syntax or spelling errors.Any formal questions or concerns about the content, text or information contained within the body of this dictation should be directly addressed to the provider for clarification. History of Present Illness Attending Physician: Ginette Mina MD History of Present Illness 51-year-old male presented to the hospital because of chest pain and shortness of breath Pain was radiating to the back. Patient was found to have inferior wall CA He was taken to the [facility] and had 2 stent placed in the RCA Post [facility] he was sent to the ICU for monitoring At the time of examination patient heart rate was in the low 90s. Blood pressure was systolic in the 110s MAP of 75 He stated that he is feeling better. Denied any chest pain at that time. No headache, no blurry vision. No dizziness currently. No nausea or vomiting. No fever or chills. No dysuria, diarrhea. Social history: 22-[id number]-[id number] smoking history, actively smoking quarter pack a day. 1-2 drinks on a daily basis There is no family history of heart problems that he can recall Allergies Allergy/AdvReac Type Severity Reaction Status Date / Time No Known Allergies Allergy Unverified 02/11/22 14:28 Home Medications Medication Instructions Recorded Confirmed Type No Known Home Medications 02/11/22 02/11/22 History Patient History Medical History (Updated 02/11/22 @ 15:11 by Ginette Mina MD) CAD (coronary artery disease), [place] coronary artery Current smoker Hyperlipidemia Social History Smoking Status: Current every day smoker Tobacco Type: Cigarettes Second Hand Exposure: Yes; Do You Dip or Chew Tobacco: Yes; Tobacco Cessation Education Requested by Patient: Yes Hx Alcohol Use: Yes Alcohol type: beer Hx Substance Use: No Preferred Language: Lithuanian Communication Ability: Effective Stoner Hand Required: No Beliefs That Will Affect Care: None Current Living Situation: Spouse and Family Other Information That Helps Us Care for You: No Feels Safe at Home: Yes Safety Concerns: Feels Safe At This Time Assistive Devices: None Review of Systems Review of Systems: All systems reviewed & are unremarkable except as noted in HPI & below Physical Exam Physical Exam: Constitutional: No acute distress HEENT: EOMI, PERRLA Respiratory system: Good air entry bilaterally, no wheeze, no rhonchi, no crackles CVS: S1-S2 positive, no murmurs or gallops Abdomen: Soft, nontender, nondistended, positive bowel sounds x4 Extremities: +2 pulses bilaterally radialis/ dorsalis pedis, no cyanosis, no edema Neuro: Awake alert oriented x3 Psych: Normal mood and affect G/U: No Flor Skin: no rashes, warm and dry Lymphatic: no cervical or axillary lymphadenopathy Results & Data Results & Data ([facility]) Vital Signs (Past 12 Hours) Vital Signs Temp Pulse Pulse Resp BP BP Pulse Ox 02/11/22 15:58 37.0 C 96 H 16 119/82 99 02/11/22 15:55 37.0 C 92 H 16 119/82 99 02/11/22 14:27 66 18 136/84 99 02/11/22 14:03 36.7 C 66 18 136/84 99 02/11/22 13:56 66 18 99 Laboratory Results 02/11/22 14:15 02/11/22 14:15 Coding Level of Care Code 51816 Inpt Consult Level 4 Diagnoses CAD (coronary artery disease), [place] coronary artery I25.10 STEMI (ST elevation myocardial infarction) I21.3 Current smoker F17.200 Hyperlipidemia E78.5
[2022-02-11] MEDS ORDERED: ASPIRIN 81 MG ECTAB PO ONE (16:45)
[2022-02-11] MEDS: ATORVASTATIN 40 MG TAB PO SCH (17:15)
[2022-02-11] MEDS: METOPROLOL TARTRATE 25 MG TAB PO SCH (20:10)
[2022-02-12 05:33] LABS: Basophils # (auto) 0.02 K/uL (0-0.2); Basophils % (auto) 0.2 %; Eosinophils # (auto) 0.11 K/uL (0-0.5); Eosinophils % (auto) 1.2 %; Hematocrit (blood only) 45.1 % (42-52); Hemoglobin 15.7 g/dL (14.0-18.0); Immature Granulocytes # (auto) 0.02 K/uL (0.00-0.02); Immature Granulocytes % (auto) 0.2 %; Lymphocytes # (auto) 2.94 K/uL (1.2-3.4); Lymphocytes % (auto) 31.9 %; Mean Corpuscular Hemoglobin 33.1 pg (25-34); Mean Corpuscular Hgb Conc 34.8 g/dL (32-36); Mean Corpuscular Volume 94.9 fL (80-100); Mean Platelet Volume 10.8 fL (7.4-10.4); Monocytes # (auto) 0.64 K/uL (0.11-0.59); Monocytes % (auto) 6.9 %; Neutrophils % (auto) 59.6 %; Platelet Count 232 K/uL (130-400); RDW Coefficient of Variation 13.2 % (11.5-14.5); RDW Standard Deviation 46.1 fL (36.4-46.3); Red Blood Count 4.75 M/uL (4.7-6.1); White Blood Count 9.23 K/uL (4.8-10.8)
[2022-02-12 05:49] LABS: Albumin Level 4.1 gm/dl (3.4-5.0); BUN Creatinine Ratio 22.7 (10-20); Bilirubin Direct 0.1 mg/dl (0-0.2); Calcium 9.4 mg/dl (8.5-10.1); Chol HDL Ratio 6.8 (0-5); Creatinine Clr Calc Pharmacy 129.1 ml/min; Magnesium 2.3 mg/dl (1.7-2.4); Phosphorus 3.4 mg/dl (2.5-4.9); Potassium 4.1 mmol/L (3.5-5.1); Total Protein 6.9 gm/dl (6.0-8.3)
--- NOTE | 2022-02-12 08:25 | Critical Care Progress Note ---
Date of Service February 12, 2022 Assessment & Plan (1) CAD (coronary artery disease), [place] coronary artery: (2) STEMI (ST elevation myocardial infarction): (3) Current smoker: (4) Hyperlipidemia: (5) NSVT (nonsustained ventricular tachycardia): Plan: Chest x-ray 02/11/2022 personally reviewed: Portable film, good inspiratory effort, bilateral costophrenic and cardiophrenic angles are clean, mildly increased cardiac silhouette. No clear lung. Appreciated -- Acute STEMI S/p PCI: ROBERT x2 in the RCA 2D echo 02/12/2022: EF 55-50%, moderate basal inferior hypokinesis, borderline aortic root dilatation Continue with aspirin, Brilinta, beta-robin, statin patient will need JORGE added as well -- Nonsustained V. tach Patient is already on beta-robin Cardiology on board --Dyslipidemia Started on statin Patient will need to work on diet and exercise -- Current smoker Importance of quitting explained to the patient in depth PFT as an outpatient --Prophylaxis VTE: None, patient is moving around in the hospital GI: None Lines: Peripheral Diet: Cardiac Plan: In/out: Negative 820, urine output 1800 mL EKG from today shows T wave inversions in lead III and aVF. No ST segment changes Continue with beta-robin Monitor for NSVT Patient hemodynamically stable to be out of the ICU Case discussed with Dr. Limon Please note the above document was generated using voice recognition software. It may contain grammatical, syntax or spelling errors.Any formal questions or concerns about the content, text or information contained within the body of this dictation should be directly addressed to the provider for clarification. Admission and Anticipated Discharge Date Admission Date: February 11, 2022 Subjective Patient seen and examined at bedside. No acute distress Overnight as well as early in the morning patient did have 6 beats of nonsustained V. tach Patient was asymptomatic at that time Denies any chest pain, no dizziness, no nausea, no vomiting Was able to tolerate breakfast today without any issues Asking to go home Review of Systems Review of Systems: All systems reviewed & are unremarkable except as noted in Subjective Physical Exam Physical Exam: Constitutional: No acute distress HEENT: EOMI, PERRLA Respiratory system: Good air entry bilaterally, no wheeze, no rhonchi, no crackles CVS: S1-S2 positive, no murmurs or gallops Abdomen: Soft, nontender, nondistended, positive bowel sounds x4 Extremities: +2 pulses bilaterally radialis/ dorsalis pedis, no cyanosis, no edema Neuro: Awake alert oriented x3 Psych: Normal mood and affect G/U: No Flor Skin: no rashes, warm and dry Lymphatic: no cervical or axillary lymphadenopathy Results & Data Results & Data ([facility]) Vital Signs (Past 12 Hours) Vital Signs Temp Pulse Pulse Resp BP BP Pulse Ox 02/12/22 08:00 64 20 125/76 94 02/12/22 07:57 36.8 C 02/12/22 07:30 61 21 108/77 94 02/12/22 07:15 60 18 104/76 94 02/12/22 07:00 36.8 C 60 18 95 02/12/22 06:45 63 16 105/80 93 02/12/22 06:00 70 19 94 02/12/22 05:45 54 L 17 97/73 L 95 02/12/22 05:30 56 L 17 94 02/12/22 05:00 59 L 15 97/66 L 94 02/12/22 04:30 60 15 103/68 93 02/12/22 04:00 36.8 C 57 L 14 94 02/12/22 03:30 58 L 15 94 02/12/22 03:01 67 15 101/71 95 02/12/22 03:00 66 18 94 02/12/22 02:30 79 15 94 02/12/22 02:00 69 15 92/59 L 95 02/12/22 01:30 71 15 101/61 94 02/12/22 01:15 58 L 15 91/55 L 94 02/12/22 01:00 66 19 93 02/12/22 00:45 64 18 102/67 93 02/12/22 00:30 63 18 93 02/12/22 00:15 60 16 99/70 L 94 02/12/22 00:00 36.9 C 61 15 91/56 L 93 02/11/22 23:49 36.9 C 66 20 91/57 L 93 02/11/22 23:30 68 17 93 02/11/22 23:00 66 17 93 02/11/22 22:45 99 H 17 112/75 95 02/11/22 22:30 70 17 93 0604/22 22:00 72 15 92 02/11/22 21:30 69 16 93 02/11/22 21:00 69 18 94 02/11/22 20:30 78 20 113/73 97 Laboratory Results 02/12/22 05:03 02/12/22 05:03 Coding Level of Care Code 23852 Subseq Hosp Care Lvl 2 Diagnoses CAD (coronary artery disease), [place] coronary artery I25.10 STEMI (ST elevation myocardial infarction) I21.3 Involved coronary artery: unspecified coronary artery Current smoker F17.200 Hyperlipidemia E78.5 Hyperlipidemia type: unspecified NSVT (nonsustained ventricular tachycardia) I47.2 (1) Hyperlipidemia Hyperlipidemia type: unspecified Qualified Code(s): E78.5 - Hyperlipidemia, unspecified (2) STEMI (ST elevation myocardial infarction) Involved coronary artery: unspecified coronary artery Qualified Code(s): I21.3 - ST elevation (STEMI) myocardial infarction of unspecified site
[2022-02-12] MEDS: ATORVASTATIN 40 MG TAB PO SCH (08:35)
[2022-02-12] MEDS: METOPROLOL TARTRATE 25 MG TAB PO SCH ×2 (08:35→20:35)
[2022-02-12] MEDS: TICAGRELOR 90 MG TAB PO SCH ×2 (08:35→20:34)
[2022-02-12] MEDS: ASPIRIN 81 MG ECTAB PO SCH (08:35)
--- NOTE | 2022-02-12 08:47 | Electrocardiogram Report ---
Test Reason : Blood Pressure : / mmHG Vent. Rate : 068 BPM Atrial Rate : 068 BPM P-R Int : 212 ms QRS Dur : 090 ms QT Int : 382 ms P-R-T Axes : 060 023 098 degrees QTc Int : 406 ms Sinus rhythm with 1st degree A-V block Possible Left atrial enlargement Acute Inferior-posterior infarct T wave abnormality, consider lateral ischemia ACUTE OH / STEMI Consider right ventricular involvement in acute inferior infarct Abnormal ECG No previous ECGs available Confirmed by Juan Melton ([id number]) on 02/12/2022 8:47:32 AM Referred By: Confirmed By:Juan Melton
--- NOTE | 2022-02-12 08:50 | Electrocardiogram Report ---
Test Reason : Blood Pressure : / mmHG Vent. Rate : 081 BPM Atrial Rate : 081 BPM P-R Int : 186 ms QRS Dur : 096 ms QT Int : 382 ms P-R-T Axes : 055 -31 007 degrees QTc Int : 443 ms Sinus rhythm with Premature supraventricular complexes Left axis deviation Inferior infarct (cited on or before 11-FEB-2022) Abnormal ECG When compared with ECG of 11-FEB-2022 14:07, (unconfirmed) Premature supraventricular complexes are now Present Serial changes of evolving Inferior infarct Present Confirmed by Juan Melton ([id number]) on 02/12/2022 8:50:25 AM Referred By: REFERRED SELF Confirmed By:Juan Melton
--- NOTE | 2022-02-12 09:00 | Electrocardiogram Report ---
Test Reason : Blood Pressure : / mmHG Vent. Rate : 062 BPM Atrial Rate : 062 BPM P-R Int : 178 ms QRS Dur : 084 ms QT Int : 404 ms P-R-T Axes : 057 -33 000 degrees QTc Int : 410 ms Normal sinus rhythm Left axis deviation Inferior infarct (cited on or before 11-FEB-2022) Abnormal ECG When compared with ECG of 11-FEB-2022 17:05, (unconfirmed) Premature supraventricular complexes are no longer Present Confirmed by Juan Melton ([id number]) on 02/12/2022 9:00:01 AM Referred By: REFERRED SELF Confirmed By:Juan Melton
--- NOTE | 2022-02-12 09:28 | Cardiology Progress Note ---
Date of Service February 12, 2022 Assessment & Plan (1) STEMI (ST elevation myocardial infarction): (2) CAD (coronary artery disease), [place] coronary artery: (3) Hyperlipidemia: (4) Current smoker: Plan: 1. Acute inferior myocardial infarction: He is doing well postintervention and his echocardiogram shows wall motion abnormalities but an overall preserved left ventricular function. 2. Coronary artery disease: He does have left system disease but it is nonobstr uctive but without strict risk factor modification this will almost certainly progress given his young age. His modifiable risk factors include smoking and cholesterol management. It sounds as though he has a reasonable diet although he should follow a Mediterranean diet and he is not overweight and is quite active. 3. Hyperlipidemia: He has a history of hyperlipidemia but has not been on stat in therapy recently. He is now on atorvastatin 40 mg daily which I would continue for now but if he tolerates this dose I would increase it to 80 in follow-up as an outpatient. If this does not control his cholesterol he should be considered for one of the injectable agents. 4. Smoking: It will be essential that he stop smoking which he understands. Admission and Anticipated Discharge Date Admission Date: February 11, 2022 Subjective This is a 51-year-old male with a history of hyperlipidemia currently not on treatment, as well as being a current smoker, who presented with acute onset of substernal chest discomfort on February 11, 2022. His symptoms were substernal chest pressure and nausea associated with lightheadedness and diaphoresis. He had a similar episode the night before but it resolved quickly. He came into the emergency room where he was noted to have an acute inferior myocardial infarction and he was taken [facility] to [facility] where he was found to have a subtotal mid RCA stenosis which was successfully dilated and stented. He had mild to moderate left system disease with no intervention indicated. His troponin peaked at over 50,000, and his cholesterol was markedly elevated on presentation. An echocardiogram done this morning after intervention shows normal overall left ventricular systolic function but with moderate basal inferior hypokinesis. Today he feels quite well. He is having no further chest discomfort, he is not short of breath and has no complaints. He is sitting at his bedside. Results & Data ([facility]) Vital Signs (Past 12 Hours) Vital Signs Temp Pulse Pulse Resp BP BP Pulse Ox 02/12/22 08:58 36.9 C 02/12/22 08:25 02/12/22 08:00 64 20 125/76 94 02/12/22 07:57 36.8 C 02/12/22 07:30 61 21 108/77 94 02/12/22 07:15 60 18 104/76 94 02/12/22 07:00 36.8 C 60 18 95 02/12/22 06:45 63 16 105/80 93 02/12/22 06:00 70 19 94 02/12/22 05:45 54 L 17 97/73 L 95 02/12/22 05:30 56 L 17 94 02/12/22 05:00 59 L 15 97/66 L 94 02/12/22 04:30 60 15 103/68 93 02/12/22 04:00 36.8 C 57 L 14 94 02/12/22 03:30 58 L 15 94 02/12/22 03:01 67 15 101/71 95 02/12/22 03:00 66 18 94 02/12/22 02:30 79 15 94 02/12/22 02:00 69 15 92/59 L 95 02/12/22 01:30 71 15 101/61 94 02/12/22 01:15 58 L 15 91/55 L 94 02/12/22 01:00 66 19 93 02/12/22 00:45 64 18 102/67 93 02/12/22 00:30 63 18 93 02/12/22 00:15 60 16 99/70 L 94 02/12/22 00:00 36.9 C 61 15 91/56 L 93 02/11/22 23:49 36.9 C 66 20 91/57 L 93 02/11/22 23:30 68 17 93 02/11/22 23:00 66 17 93 02/11/22 22:45 99 H 17 112/75 95 02/11/22 22:30 70 17 93 02/11/22 22:00 72 15 92 02/11/22 21:30 69 16 93 Pulse Ox 02/12/22 08:58 02/12/22 08:25 99 02/12/22 08:00 02/12/22 07:57 02/12/22 07:30 02/12/22 07:15 02/12/22 07:00 02/12/22 06:45 02/12/22 06:00 02/12/22 05:45 02/12/22 05:30 02/12/22 05:00 02/12/22 04:30 02/12/22 04:00 02/12/22 03:30 02/12/22 03:01 02/12/22 03:00 02/12/22 02:30 02/12/22 02:00 02/12/22 01:30 02/12/22 01:15 02/12/22 01:00 02/12/22 00:45 02/12/22 00:30 02/12/22 00:15 02/12/22 00:00 02/11/22 23:49 02/11/22 23:30 02/11/22 23:00 02/11/22 22:45 02/11/22 22:30 02/11/22 22:00 02/11/22 21:30 Laboratory Results Cardiac Enzymes 02/11/22 02/11/22 02/11/22 Range/Units 14:15 14:15 20:24 AST 23 (13-39) U/L Troponin I High Sens 72.0 H* 57198.5 H* D (0-20) pg/ml B-Natriuretic Peptide 18 (0-100) pg/ml 02/12/22 02/12/22 Range/Units 02:03 05:03 AST 117 H (13-39) U/L Troponin I High Sens 41109.2 H* (0-20) pg/ml B-Natriuretic Peptide (0-100) pg/ml Coagulation 02/11/22 02/11/22 Range/Units 14:15 14:15 PT 10.2 (9.0-12.0) Seconds APTT 23.1 (21.0-31.0) Seconds B-Natriuretic Peptide 18 (0-100) pg/ml Lipids 02/12/22 Range/Units 05:03 Triglycerides 187 H (0-150) mg/dl Cholesterol 259 H (0-200) mg/dl HDL Cholesterol 38 mg/dl Cholesterol/HDL Ratio 6.8 H (0-5) CBC 02/11/22 02/12/22 Range/Units 14:15 05:03 WBC 9.24 9.23 (4.8-10.8) K/uL RBC 5.14 4.75 (4.7-6.1) M/uL Hgb 16.5 15.7 (14.0-18.0) g/dL Hct 48.2 45.1 (42-52) % Plt Count 228 232 (130-400) K/uL Neut # (Auto) 4.69 5.50 (1.4-6.5) K/uL Lymph # (Auto) 3.74 H 2.94 (1.2-3.4) K/uL [place] # (Auto) 0.58 0.64 H (0.11-0.59) K/uL Eos # (Auto) 0.18 0.11 (0-0.5) K/uL Baso # (Auto) 0.04 0.02 (0-0.2) K/uL Comprehensive Metabolic Panel 02/11/22 02/12/22 Range/Units 14:15 05:03 Sodium 139 138 (136-145) mmol/L Potassium 3.8 4.1 (3.5-5.1) mmol/L Chloride 104 108 H (98-107) mmol/L Carbon Dioxide 26 23 (21-32) mmol/L BUN 12 17 (6-23) mg/dl Creatinine 0.90 0.75 (0.6-1.4) mg/dl Glucose 103 H 97 (70-99(Fasting)) mg/dl Calcium 9.5 9.4 (8.5-10.1) mg/dl Direct Bilirubin 0.1 (0-0.2) mg/dl AST 23 117 H (13-39) U/L ALT 34 48 (7-52) U/L Alkaline Phosphatase 78 70 (34-104) U/L Total Protein 7.7 6.9 (6.0-8.3) gm/dl Albumin 4.7 4.1 (3.4-5.0) gm/dl Intake and Output 02/11/22 02/12/22 02/12/22 22:59 06:59 14:59 Intake Total 740 / 740 0 / 740 240 / 240 Output Total 1300 / 1300 0 / 1300 500 / 500 Balance -560 / -560 0 / -560 -260 / -260 Intake: IV 500 / 500 Sodium Chloride 0.9% 500 ml @ 500 / 500 999 mls/hr IV .Q31M ONE Rx#: [id number] Oral 240 / 240 0 / 240 240 / 240 Output: Urine 1300 / 1300 0 / 1300 500 / 500 Other: Weight 87.6 kg 86.6 kg Weight Measurement Method [facility] Time/CCT Total # of Minutes Spent Total Time Spent with Patient: Total time spent is greater than 50% in coordination of care (as documented) at patient's floor/unit and/or counseling patient: Coding Level of Care Code 91425 Subseq Hosp Care Lvl 3 Diagnoses STEMI (ST elevation myocardial infarction) I21.11 Involved coronary artery: right coronary artery CAD (coronary artery disease), [place] coronary artery I25.10 Associated angina: without angina [place] vs. transplanted heart: [place] heart Hyperlipidemia E78.5 Hyperlipidemia type: unspecified Current smoker F17.200 (1) Hyperlipidemia Hyperlipidemia type: unspecified Qualified Code(s): E78.5 - Hyperlipidemia, unspecified (2) CAD (coronary artery disease), [place] coronary artery Associated angina: without angina [place] vs. transplanted heart: [place] heart Qualified Code(s): I25.10 - Atherosclerotic heart disease of [place] coronary artery without angina pectoris (3) STEMI (ST elevation myocardial infarction) Involved coronary artery: right coronary artery Qualified Code(s): I21.11 - ST elevation (STEMI) myocardial infarction involving right coronary artery
--- NOTE | 2022-02-12 09:53 | XCELERA ---
[id number] \\[id number]
--- NOTE | 2022-02-12 10:13 | Hospitalist Progress Note ---
Date of Service February 12, 2022 Assessment & Plan (1) STEMI (ST elevation myocardial infarction): Plan: Presented with inferior STEMI. Risk factors include age, gender, smoking, untreated hyperlipidemia. 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 Taken urgently for cardiac cath and found to have severe 99% mid RCA lesion with MICHEAL II flow. He had successful intervention performed with placement of 2 overlapping drug- eluting stents in mid right coronary artery, 3 mm x 23 mm Xience drug-eluting stents. His left coronary system appears to have mild to moderate mid LAD disease of 40 to 50% severity, left circumflex system otherwise appears normal. remains chest pain free. Right femoral cath site DAPT with ASA-first dose now, and Brilinta -start atorvastatin high intensity metoprolol 25mg po bid -will also need ACEi when BP can tolerate -preliminary ECHO shows preserved EF with moderate basal inferior hypokinesis. -femoral cath site precautions -counseled extensively on importance of smoking cessation -will need cardiac rehab (2) CAD (coronary artery disease), [place] coronary artery: Plan: as above (3) Hyperlipidemia: Plan: started statin, TC 259, LDL 184,HDL38. trig 187 (4) Current smoker: Plan: counseled on cessation Plan: DVT proph-lovenox transition out of icu , additional monitoring with nsVT Needs PCP FULL CODE Admission and Anticipated Discharge Date Admission Date: February 11, 2022 Subjective pt states he feels great, has no further chest pain, did have some non sustained V tach over the night, none since tolerating medications well Review of Systems Review of Systems: Mild distress and fatigue no headache, no visual changes no speech or swallowing issues no chest pain, pressure or palpitations no shortness of breath, cough or wheezes no abdominal pain, nausea or vomiting, diarrhea or constipation no dysuria, hematuria or frequency no focal joint pain or swelling no back pain, CVA tenderness or radicular pain no bruising, bleeding or rashes. Cath access site is clean and dry no focal signs of weakness or numbness or altered sensation no complaints of anxiety or depression.. Physical Exam Physical Exam: The patient appeared well nourished and normally developed. Vital signs as documented. Head exam is normocephalic atraumatic Neck is without JVD, thyromegaly, or carotid bruits. Lungs are clear to auscultation, no focal loss of breath sounds Cardiac exam, Rhythm is regular.. No murmurs, rubs or gallops. Abdominal exam reveals normal bowel sounds, soft non tender, no masses Extremities are nonedematous and both pedal pulses are present Neurologic exam is alert and oriented, no focal loss of strength or sensation Psychologically is without concerns for anxiety or depression.. Results & Data Results & Data ([facility]) Vital Signs (Past 12 Hours) Vital Signs Temp Pulse Pulse Resp BP BP Pulse Ox 02/12/22 08:58 98.4 F 02/12/22 08:25 02/12/22 08:00 64 20 125/76 94 02/12/22 07:57 98.3 F 02/12/22 07:30 61 21 108/77 94 02/12/22 07:15 60 18 104/76 94 02/12/22 07:00 98.3 F 60 18 95 02/12/22 06:45 63 16 105/80 93 02/12/22 06:00 70 19 94 02/12/22 05:45 54 L 17 97/73 L 95 02/12/22 05:30 56 L 17 94 02/12/22 05:00 59 L 15 97/66 L 94 02/12/22 04:30 60 15 103/68 93 02/12/22 04:00 98.2 F 57 L 14 94 02/12/22 03:30 58 L 15 94 02/12/22 03:01 67 15 101/71 95 02/12/22 03:00 66 18 94 02/12/22 02:30 79 15 94 02/12/22 02:00 69 15 92/59 L 95 02/12/22 01:30 71 15 101/61 94 02/12/22 01:15 58 L 15 91/55 L 94 02/12/22 01:00 66 19 93 02/12/22 00:45 64 18 102/67 93 02/12/22 00:30 63 18 93 02/12/22 00:15 60 16 99/70 L 94 02/12/22 00:00 98.4 F 61 15 91/56 L 93 02/11/22 23:49 98.4 F 66 20 91/57 L 93 02/11/22 23:30 68 17 93 02/11/22 23:00 66 17 93 0622 22:45 99 H 17 112/75 95 02/11/22 22:30 70 17 93 Pulse Ox 02/12/22 08:58 02/12/22 08:25 99 02/12/22 08:00 02/12/22 07:57 02/12/22 07:30 02/12/22 07:15 02/12/22 07:00 02/12/22 06:45 02/12/22 06:00 02/12/22 05:45 02/12/22 05:30 02/12/22 05:00 02/12/22 04:30 02/12/22 04:00 02/12/22 03:30 02/12/22 03:01 02/12/22 03:00 02/12/22 02:30 02/12/22 02:00 02/12/22 01:30 02/12/22 01:15 02/12/22 01:00 02/12/22 00:45 02/12/22 00:30 02/12/22 00:15 02/12/22 00:00 02/11/22 23:49 02/11/22 23:30 02/11/22 23:00 02/11/22 22:45 02/11/22 22:30 PG Care Time/CCT Total # of Minutes Spent Total Time Spent with Patient: Total time spent is greater than 50% in coordination of care (as documented) at patient's floor/unit and/or counseling patient: Coding Level of Care Code 45320 Subseq Hosp Care Lvl 2 Diagnoses STEMI (ST elevation myocardial infarction) I21.11 Involved coronary artery: right coronary artery CAD (coronary artery disease), [place] coronary artery I25.10 Associated angina: without angina [place] vs. transplanted heart: [place] heart Hyperlipidemia E78.5 Hyperlipidemia type: unspecified Current smoker F17.200 (1) Hyperlipidemia Hyperlipidemia type: unspecified Qualified Code(s): E78.5 - Hyperlipidemia, unspecified (2) CAD (coronary artery disease), [place] coronary artery Associated angina: without angina [place] vs. transplanted heart: [place] heart Qualified Code(s): I25.10 - Atherosclerotic heart disease of [place] coronary artery without angina pectoris (3) STEMI (ST elevation myocardial infarction) Involved coronary artery: right coronary artery Qualified Code(s): I21.11 - ST elevation (STEMI) myocardial infarction involving right coronary artery
[2022-02-12] MEDS ORDERED: MoRPHine SULFATE 2 MG/ML CARP IV PRN (11:23)
[2022-02-12] MEDS ORDERED: ENOXAPARIN INJ 40 MG/0.4 ML SYR SQ ONE (11:51)
[2022-02-13 06:45] LABS: Estimated Average Glucose 123 mg/dl; Hemoglobin A1C 5.9 % (4.5-5.6)
[2022-02-13 06:45] LABS: Basophils # (auto) 0.03 K/uL (0-0.2); Basophils % (auto) 0.4 %; Eosinophils # (auto) 0.17 K/uL (0-0.5); Hematocrit (blood only) 46.9 % (42-52); Hemoglobin 16.2 g/dL (14.0-18.0); Immature Granulocytes # (auto) 0.01 K/uL (0.00-0.02); Immature Granulocytes % (auto) 0.1 %; Lymphocytes # (auto) 2.48 K/uL (1.2-3.4); Lymphocytes % (auto) 29.9 %; Mean Corpuscular Hemoglobin 32.4 pg (25-34); Mean Corpuscular Hgb Conc 34.5 g/dL (32-36); Mean Corpuscular Volume 93.8 fL (80-100); Mean Platelet Volume 10.9 fL (7.4-10.4); Monocytes # (auto) 0.71 K/uL (0.11-0.59); Monocytes % (auto) 8.6 %; Platelet Count 206 K/uL (130-400); RDW Coefficient of Variation 13.4 % (11.5-14.5); RDW Standard Deviation 45.9 fL (36.4-46.3)
[2022-02-13 07:15] LABS: Albumin Level 4.3 gm/dl (3.4-5.0); BUN Creatinine Ratio 25.3 (10-20); Bilirubin Direct 0.2 mg/dl (0-0.2); Bilirubin,Total 1.5 mg/dl (0.2-1.0); Calcium 9.6 mg/dl (8.5-10.1); Creatinine Clr Calc Pharmacy 106.5 ml/min; Est GFR (African American) 118.9 ml/min; Est GFR (Non-African American) 102.6 ml/min; Magnesium 1.8 mg/dl (1.7-2.4); Phosphorus 3.2 mg/dl (2.5-4.9); Total Protein 7.4 gm/dl (6.0-8.3)
[2022-02-13] MEDS: METOPROLOL TARTRATE 25 MG TAB PO SCH (08:41)
[2022-02-13] MEDS: ASPIRIN 81 MG ECTAB PO SCH (08:42)
[2022-02-13] MEDS: TICAGRELOR 90 MG TAB PO SCH (08:42)
[2022-02-13] MEDS: ATORVASTATIN 40 MG TAB PO SCH (08:42)
--- NOTE | 2022-02-13 10:35 | Cardiology Progress Note ---
Date of Service February 13, 2022 Assessment & Plan (1) CAD (coronary artery disease), [place] coronary artery: (2) STEMI (ST elevation myocardial infarction): Plan: Mr. Carbone is a 51-year-old male with a history of Hyperlipidemia, Tobacco Use and recently diagnosed CAD s/p Acute Inferior STEMI 12/12/21 (symptoms included chest pressure, lightheadedness, nausea, and diaphoresis) who is being seen in room 241-1. Patient offers no complaints today. He has not had any symptoms whatsoever since having his RCA stents deployed. He has been up and walking in the hallways and has not experienced any angina pectoris, chest discomfort, or shortness of breath. His peak hsTroponin I was 05950.5 pg/mL. Fortunately, he has preserved LV systolic function on follow-up Echocardiogram 02/13/2020. child monitor overnight showed predominantly sinus bradycardia in the 50s, he is currently in a sinus rhythm with rates in the 60s and 70s. Apparently he had a few episodes of nonsustained V-tach for which he was completely asymptomatic. Patient has not had any complications at his right femoral arterial access site. Cardiac Catheterization 12/12/21 showed severe single-vessel CAD with a high- grade mid RCA stenosis for which he had deployed 2 Xience 3.0 x 23 mm drug-el uting stents deployed in overlapping fashion. Patient has remained hemodynamically stable since that time and he feels quite well. He has been ambulating in the hallways and has not had any angina pectoris or recurrent symptoms. Patient is stable from cardiac standpoint for discharge to home. Recommend the followin. Aspirin 81 mg daily for a lifetime. 2. Brilinta 90 mg b.i.d. for a minimum of 1 year. 3. Toprol XL 50 mg daily at discharge in place of Lopressor 25 mg b.i.d. 4. Atorvastatin 40 mg daily. 5. Consult cardiac rehabilitation at follow-up visit. We discussed his cardiac catheterization findings in detail, and we discussed the management of coronary artery disease. Patient was strongly encouraged to quit smoking and to take the medications as prescribed. Patient is to call if any problems, questions, change in clinical status, or if any recurrent symptoms. Follow-up visit with Diallo Beck PA-C at [facility] [place] [address] [place] [address] on 02/22/22 at 11:30 a.m.. (3) Hyperlipidemia: Plan: Patient's Lipid Panel on admission showed a total cholesterol 259 mg/dL, LDL is 184 mg/dL, and his HDL is low at 38 mg/dL. Total Cholesterol:HDL ratio 6.8. -- Goal LDL is < 100 mg/dL. -- Consider increasing Atorvastatin 80 mg daily at follow-up visit. -- If he does not reach target LDL level on maximum tolerated dose of a statin, we will add Repatha 140 mg SQ injection every 2 weeks. 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 Admission and Anticipated Discharge Date Admission Date: February 11, 2022 Subjective Mr. Carbone is a 51-year-old male with a history of Hyperlipidemia, Tobacco Use and recently diagnosed CAD s/p Acute Inferior STEMI 12/12/21 who is being seen in room 241-1. Patient offers no complaints today. He has not had any symptoms whatsoever since having his RCA stents deployed. He has been up and walking in the hallways and has not experienced any angina pectoris, chest discomfort, or shortness of breath. His peak hsTroponin I was 13196.5 pg/mL. Fortunately, he has preserved LV systolic function on follow-up Echocardiogram 02/13/2020. Cardi ac monitor overnight showed predominantly sinus bradycardia in the 50s, he is currently in a sinus rhythm with rates in the 60s and 70s. Apparently he had a few episodes of nonsustained V-tach for which he was completely asymptomatic. Patient has not had any complications at his right femoral arterial access site. Patient specifically denies any exertional chest pain, heaviness, tightness, pressure, or discomfort. He denies any exertional neck, jaw, back, or arm pain. He denies any shortness of breath, unusual dyspnea on exertion, orthopnea, or PND. He denies any palpitations, syncope, or near syncope. Patient has decided to quit smoking. He is also determined to eat a healthier diet. 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 He is off this week and took a vacation next week but he is staying in town. Review of Systems Review of Systems: 10 point ROS completed and is negative with the exception of what is mentioned in the HPI. Physical Exam Physical Exam: GENERAL: Patient in no acute distress. HEENT: Head is atraumatic, normocephalic. EOM's intact. Facies symmetric. No perioral cyanosis. NECK: No JVD. JVP is not elevated. Carotid upstrokes are + 2 bilaterally. No bruits are noted. CHEST/LUNGS: Clear to auscultation throughout all lung hurtado. No wheezes, rales, or crackles. CVS: S1 and S2 are regular without obvious murmurs, gallops, or rubs. PMI is nondisplaced. No lifts, heaves, or thrills. No abdominal aortic or renal bruits. ABDOMINAL EXAM: Bowel sounds are present. No masses, organomegaly, or tenderness. EXTREMITIES: No clubbing or cyanosis. No edema. Intact posterior tibial and radial pulses bilaterally. Right femoral arterial access site is closed, small amount of ecchymosis is present. No hematomas. NEUROLOGIC EXAM: Patient is awake, alert, and oriented. Pleasant and cooperative. Answers questions appropriately. Speech is clear. Normal movement in all 4 extremities. Gait pattern was not observed. SENIOR SOLUTIONS CONSULTANT: -- Sinus bradycardia in the 50's overnight. -- Currently in a NSR in 60s and 70s. -- One 6 beat run of nonsustained V-tach on 02/12/2022. Results & Data ([facility]) Vital Signs (Past 12 Hours) Vital Signs Temp Pulse Pulse Resp BP Pulse Ox 02/13/22 07:43 36.4 C L 72 20 115/77 96 02/13/22 07:12 67 02/13/22 03:57 36.8 C 58 L 18 114/71 95 02/12/22 23:52 55 L 02/12/22 23:47 36.9 C 57 L 18 102/65 96 Laboratory Results Laboratory Results - last 24 hr 02/12/22 02/12/22 02/12/22 05:03 05:03 16:22 WBC RBC Hgb Hct MCV MCH MCHC RDW Std Deviation RDW Coeff of Adina Plt Count MPV Immature Gran % (Auto) Neut % (Auto) Lymph % (Auto) Maries % (Auto) Eos % (Auto) Baso % (Auto) Neut # (Auto) Lymph # (Auto) Maries # (Auto) Eos # (Auto) Baso # (Auto) Immature Gran # (Auto) Sodium 138 Potassium 4.1 Chloride 108 H Carbon Dioxide 23 Anion Gap 7 BUN 17 Creatinine 0.75 Est Cr Clr Drug Dosing 129.1 Est GFR ( Amer) 124.0 Est GFR (Non-Af Amer) 107.0 BUN/Creatinine Ratio 22.7 H Glucose 97 POC Glucose 79 Estimat Average Glucose 123 Hemoglobin A1c 5.9 H Calcium 9.4 Phosphorus 3.4 Magnesium 2.3 Total Bilirubin 1.0 Direct Bilirubin 0.1 AST 117 H ALT 48 Alkaline Phosphatase 70 Total Protein 6.9 Albumin 4.1 Triglycerides 187 H Cholesterol 259 H LDL Cholesterol, Calc 184 VLDL Cholesterol, Calc 37 H HDL Cholesterol 38 Cholesterol/HDL Ratio 6.8 H 02/13/22 02/13/22 05:51 05:51 WBC 8.30 RBC 5.00 Hgb 16.2 Hct 46.9 MCV 93.8 MCH 32.4 MCHC 34.5 RDW Std Deviation 45.9 RDW Coeff of Adina 13.4 Plt Count 206 MPV 10.9 H Immature Gran % (Auto) 0.1 Neut % (Auto) 59.0 Lymph % (Auto) 29.9 Maries % (Auto) 8.6 Eos % (Auto) 2.0 Baso % (Auto) 0.4 Neut # (Auto) 4.90 Lymph # (Auto) 2.48 Maries # (Auto) 0.71 H Eos # (Auto) 0.17 Baso # (Auto) 0.03 Immature Gran # (Auto) 0.01 Sodium 139 Potassium 4.0 Chloride 107 Carbon Dioxide 22 Anion Gap 10 BUN 21 Creatinine 0.83 Est Cr Clr Drug Dosing 106.5 Est GFR ( Amer) 118.9 Est GFR (Non-Af Amer) 102.6 BUN/Creatinine Ratio 25.3 H Glucose 90 POC Glucose Estimat Average Glucose Hemoglobin A1c Calcium 9.6 Phosphorus 3.2 Magnesium 1.8 Total Bilirubin 1.5 H Direct Bilirubin 0.2 AST 58 H ALT 41 Alkaline Phosphatase 75 Total Protein 7.4 Albumin 4.3 Triglycerides Cholesterol LDL Cholesterol, Calc VLDL Cholesterol, Calc HDL Cholesterol Cholesterol/HDL Ratio Diagnostic Findings CARDIAC CATHETERIZATION 12/12/21: -- Cardiac catheterization revealed severe 99% mid RCA lesion with MICHEAL II flow. -- He had successful intervention performed with placement of 2 overlapping drug-eluting stents in mid right coronary artery, 3 mm x 23 mm Xience drug- eluting stents. -- Successful hoahaoism of MICHEAL-3 flow in the distal part of the vasculature. Medications Administered Medications aspirin 81 mg tablet,delayed release 81 mg PO QAM #90 tab 02/13/22 [Rx] atorvastatin 40 mg tablet 40 mg PO QAM #30 tab 02/13/22 [Rx] clopidogrel 75 mg tablet (Plavix) 75 mg PO DAILY #30 tab 02/13/22 [Rx] metoprolol tartrate 25 mg tablet 25 mg PO BID #60 tab 02/13/22 [Rx] Home Medications Aspirin (Aspirin 81 Mg Ectab) 81 mg PO QAM [facility] Stop: 03/14/22 08:59 Last Admin: 02/13/22 08:42 Dose: 81 mg Documented by: Atorvastatin Calcium (Atorvastatin 40 Mg Tab) 40 mg PO QAM [facility] Stop: 03/13/22 15:29 Last Admin: 02/13/22 08:42 Dose: 40 mg Documented by: Metoprolol Tartrate (Metoprolol Tartrate 25 Mg Tab) 25 mg PO BID [facility] Stop: 03/13/22 20:59 Last Admin: 02/13/22 08:41 Dose: 25 mg Documented by: Morphine Sulfate (Morphine Sulfate 2 Mg/Ml Carp) 2 mg IV Q4 PRN PRN Reason: Pain Scale: 2,3,4,5,6 Stop: 02/26/22 11:22 Ticagrelor (Ticagrelor 90 Mg Tab) 90 mg PO BID [facility] Stop: 03/14/22 08:59 Last Admin: 02/13/22 08:42 Dose: 90 mg Documented by: PG Care Time/CCT Total # of Minutes Spent Total Time Spent with Patient: Total time spent is greater than 50% in coordination of care (as documented) at patient's floor/unit and/or counseling patient:25 Coding Level of Care Code 28846 Subseq Hosp Care Lvl 3 Diagnoses CAD (coronary artery disease), [place] coronary artery I25.10 Associated angina: without angina [place] vs. transplanted heart: [place] heart STEMI (ST elevation myocardial infarction) I21.11 Involved coronary artery: right coronary artery Hyperlipidemia E78.5 Hyperlipidemia type: unspecified NSVT (nonsustained ventricular tachycardia) I47.2 Time Spent (min) 48 (1) Hyperlipidemia Hyperlipidemia type: unspecified Qualified Code(s): E78.5 - Hyperlipidemia, unspecified (2) CAD (coronary artery disease), [place] coronary artery Associated angina: without angina [place] vs. transplanted heart: [place] heart Qualified Code(s): I25.10 - Atherosclerotic heart disease of [place] coronary artery without angina pectoris (3) STEMI (ST elevation myocardial infarction) Involved coronary artery: right coronary artery Qualified Code(s): I21.11 - ST elevation (STEMI) myocardial infarction involving right coronary artery
--- NOTE | 2022-02-13 11:52 | Discharge Summary ---
Date of Service February 13, 2022 Admission HPI Per Admitting Provider This pt is a 51 yo male with a h/o smoking and hyperlipidemia who has not seen a PCP in over 10 years and takes no medications who presents to the ER after having chest pain that came on while doing some yard work today about an hour before his arrival to the hospital. He had some chest pain last evening that was similar but did not last as long and then went away. Today after the chest pain started, he went into his garage and then had some associated N/V and diaphoresis. He tried taking ibuprofen and some milk with no relief. Pain radiated to his left shoulder and he had a sensation that something wasn't quite right. He then called 911 and arrived in ER via EMS. He was found to have ST elevations in inferior leads with reciprocal ST depressions in lateral leads c/w inferior STEMI. He was hemodynamically stable in the ER. A heart alert was called and he was given Brilinta and heparin gtt, but no aspirin. He was then taken urgently to the laborer tree tapping and had 2 drug eluting stents placed in mid RCA for a 99% stenosis. His left coronary system appears to have mild to moderate mid LAD disease of 40 to 50% severity, left circumflex system otherwise appears normal. He will be admitted to the ICU for post-interventional care and tele monitoring for arrhythmia. Principal Diagnosis Stemi IWMI stent to RCA tobacco abuse Discharge Exam The patient appeared stable Vital signs as documented. Lungs are clear to auscultation and appear unlabored Cardiac exam, Rhythm is regular.. No murmurs, rubs or gallops. Abdominal exam reveals normal bowel sounds, soft non tender, no masses Extremities are nonedematous and both pedal pulses are normal. right femoral artery access site is with little bruising no bruit Neurologic exam is alert and oriented, no focal loss of strength or sensation Skin is without bruises or rashes Psychologically is without concerns for anxiety or depression. Discharge Data Allergies Allergy/AdvReac Type Severity Reaction Status Date / Time No Known Allergies Allergy Unverified 02/11/22 14:28 Consultations 02/11/22 14:23 ED Decision to Admit Stat 02/11/22 15:10 Consult Slasher Tender Routine 02/11/22 15:17 Consult Internal Medicine Routine 02/11/22 16:07 Consult Cardiology Routine Procedures Performed Operation Date: 02/11/22 14:30 Actual Procedures s Cineradiography w/Routine Exam - Agus Ruelas MD p Aspiration/PCI w/ROBERT for Stemi - Agus Ruelas MD s Cath, Coronaries ONLY (no LV) - Agus Ruelas MD s Placement Art Occlusive Device - Agus Ruelas MD Ordered Studies 02/11/22 14:14 CL Cath Imgs for PACS use only Stat Hospital Course (1) STEMI (ST elevation myocardial infarction): Presented with inferior STEMI. Risk factors include age, gender, smoking, untreated hyperlipidemia. 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 Taken urgently for cardiac cath and found to have severe 99% mid RCA lesion with MICHEAL II flow. He had successful intervention performed with placement of 2 overlapping drug- eluting stents in mid right coronary artery, 3 mm x 23 mm Xience drug-eluting stents. His left coronary system appears to have mild to moderate mid LAD disease of 40 to 50% severity, left circumflex system otherwise appears normal. remains chest pain free. Right femoral cath site DAPT with ASA and plavix -start atorvastatin high intensity metoprolol 25mg po bid EF preserved and BP slighlty low for yara i, will re evaluate in office -preliminary ECHO shows preserved EF with moderate basal inferior hypokinesis. -femoral cath site precautions -counseled extensively on importance of smoking cessation (2) CAD (coronary artery disease), [place] coronary artery: as above (3) Hyperlipidemia: started statin, TC 259, LDL 184,HDL38. trig 187 (4) Current smoker: counseled on cessation DVT proph-lovenox transition out of icu , additional monitoring with nsVT Needs PCP FULL CODE Total Time Total Time Spent Total Time Spent (In Minutes): Discharge 30 including personal discussion with cardiology regarding this patient's disposition Discharge Plan Discharge Items Patient Disposition: Home - Self-Care Reason For Visit: STEMI Discharge Diagnosis: heart attack, known as ST elevated Myocardial infarction intra coronary artery stent x2 in the right coronary artery Activity: Per Instructions section Activity Comment: no intentional exercise until you are cleared by cardiology Non-emergency contact: Primary Care Provider and Practicing Md Anesthesiologist Call non-emergency contact if: your symptoms worsen and you have a fever Follow-up/Referrals: PCP,NO [Physician] - Diet: Heart Healthy Addtl Attending Provider Instructions: Please stop smoking ACTIVITY RECOMMENDATIONS: * Keep the site of the procedure covered with a bandage for 24 hours. *You may shower the day after the procedure. Do not take a tub bath or submerge the puncture site in water for the next 3 days. *Do not operate any motorized equipment for 3 days. SPECIAL CARE INSTRUCTIONS: The site may be slightly bruised and sore following your procedure. Should any of the following occur, contact the Dr. who performed your procedure. 1. Redness/inflammation, swelling, chills, or fever, or colored drainage at procedure site within 3-7 days after your procedure. 2. Coldness, discoloration, ongoing numbness, severe pain, or swelling. Expect mild tingling of hand and tenderness at the puncture site for up to three days. If this persists beyond three days, or other symptoms develop, notify the Dr. who performed your procedure. BLEEDING: If the procedure site on your wrist begins to bleed, do not panic 1. Place 1 or 2 fingers firmly just slightly above the insertion site to stop the bleeding. You may be able to feel your pulse as you hold pressure. 2. Lift your finger after 5 minutes to see if the bleeding has stopped. 3. Once the bleeding has stopped, gently wipe the wrist area clean with a bandage. * If the bleeding does not stop after 10 minutes, or if there is a large amount of bleeding or spurting, call 911 (do not drive yourself to the hospital). SKIN IRRITATION: * You may experience some redness and/or swelling in the area where radiation was administered. If any skin irritation occurs, please contact your family physician. FOLLOW UP VISIT: Keep any scheduled doctor appointments. Pending Studies at Discharge: No Stand-Alone Forms: My [employer], Work/School Release, Smoking Cessation Medications and DC Order Prescriptions: New atorvastatin 40 mg Tablet 40 mg PO QAM Qty: 30 RF: 4 aspirin 81 mg Tablet,Delayed Release (Dr/Ec) 81 mg PO QAM Qty: 90 RF: 0 metoprolol tartrate 25 mg Tablet 25 mg PO BID Qty: 60 RF: 4 clopidogrel [Plavix] 75 mg tablet 75 mg PO DAILY Qty: 30 RF: 5 Discharge Orders: Discharge Order (Routine); Ordered 02/13/22 Ordered By: Jean Claude Limon Admission Data Admit Date/Time: 02/11/22 15:10 Attending Provider: Demar Martin Admit Provider: Agus Ruelas Primary Care Provider: Marley Sánchez Other Providers: Ginette Mina ; Agus Ruelas ; Ambrocio Bronson ; Estrellita Nam ; Bhupendra Husain ; Alfredo Hernandez ; Jean Claude Limon ; Bryce Trujillo ; Joe Smith ; Jose Manuel [place] ; Trinity Marquez ; Mitch Martinez ; Wagner Cedillo ; Uma Zambrano ; Reina Cadena ; Rob Castaneda ; Estrellita Perez ; Bill Fernández ; Nam Arrington ; Omar Murray ; Bhupendra Olivares ; Oly Soto ; Niya Peguero ; Kurt Figueroa ; Yaritza Lane ; Daniel Bradley ; Giovani Quinn ; Donovan Ruby ; Vern Giraldo ; Demar Martin ; Juan Melton Coding Level of Care Code D/C DAY MANAGEMENT >30 MINS Diagnoses STEMI (ST elevation myocardial infarction) I21.11 Involved coronary artery: right coronary artery CAD (coronary artery disease), [place] coronary artery I25.10 [place] vs. transplanted heart: [place] heart Associated angina: without angina Hyperlipidemia E78.5 Hyperlipidemia type: unspecified Current smoker F17.200
--- NOTE | 2022-02-15 06:09 | Electrocardiogram Report ---
Test Reason : Blood Pressure : / mmHG Vent. Rate : 062 BPM Atrial Rate : 062 BPM P-R Int : 172 ms QRS Dur : 082 ms QT Int : 448 ms P-R-T Axes : 052 -43 -50 degrees QTc Int : 454 ms Normal sinus rhythm Left axis deviation Inferior infarct (cited on or before 11-FEB-2022) Abnormal ECG When compared with ECG of 12-FEB-2022 05:56, T wave inversion more evident in Inferior leads T wave amplitude has increased in Lateral leads Confirmed by Rickey Mae ([id number]) on 02/15/2022 6:09:15 AM Referred By: REFERRED SELF Confirmed By:Rickey Mae
== END 2022-02-13 13:19 | disposition home or self-care (01) | DRG 247 ==
LOC: ED 14:04 → CC 14:27 → SUATTDRO 15:10 → 1E 15:10 → 2S 02-12 18:51
PROC: CLB.CCO (2022-02-11 14:30)